=== PATIENT | female | born 1935 ===

== ENCOUNTER 2016-11-23 07:15 | Day surgery (SDC) | payer MEDICARE ==
[2016-11-23 07:57] VITALS: BMI 18.7
[2016-11-23 08:05] VITALS: TEMP 97.8
[2016-11-23] MEDS ORDERED: Propofol 10 mg/ml Inj (20 ML) ONE (08:11)
[2016-11-23] MEDS ORDERED: Lidocaine Hydrochloride 5 ML INJ ONE (08:12)
[2016-11-23] MEDS ORDERED: Lactated Ringer's 1,000 ML IV ONE (08:30)
--- NOTE | 2016-11-23 08:32 | CP.SDSHP ---
Same Day Surgery H & P - History Proposed Procedure: EGD and Colonoscopy Pre-Op Diagnosis: Kay's esophagus and personal history of colonic polyps - Previous Medical/Surgical History Misc: Other Comments: Hyperlipidemia, GERD Previous Surgical History: Appendectomy, oophorectomy, R inguinal hernia repair - Allergies Allergies: Allergies No Known Allergies Allergy (Verified 09/29/13 12:47) - Current Medications Current Medications: See reconciliation shet - Physical Exam General Appearance: WD WN female in NAD Vital Signs: Vital Signs 11/23/16 07:58 Temperature 97.8 F Pulse Rate 80 Respiratory 20 Rate Blood Pressure 140/61 O2 Sat by Pulse 100 Oximetry Mental Status: Alert & Oriented x3 Neuro: WNL Heart: WNL Lungs: WNL GI: WNL - Impression Impression: Kay's esophagus and personal history of colonic polyps Pt. Evaluated Today:Candidate for Anesthesia & Procedure: Yes - Date & Time Date: 11/23/16 Time: 08:32 Short Stay Discharge - Short Stay Discharge Admitting Diagnosis/Reason for Visit: PERSONAL HISTORY OF COLONIC POLYPS,KAY 'S ESOPH Disposition: HOME/ ROUTINE
[2016-11-23] MEDS ORDERED: Atropine 0.4 mg/ml Inj (1 mL) ONE (09:32)
[2016-11-23 10:04] VITALS: RESP 12
[2016-11-23 11:49] VITALS: BP 103/61; PULSE 65; O2SAT 99
== END 2016-11-23 11:20 | disposition home or self-care (01) ==
LOC: C.ENDO 07:15
PROVIDERS: ATTEND Internal Medicine Gastroenterology
DX: Z86.010 Personal history of colon polyps (principal); K57.30 Diverticulosis of large intestine without perforation or abscess without bleeding; K63.5 Polyp of colon
CPT/HCPCS: 45380; 88305; 88312; 88313; 88342; J0461; J2704; J7120

== ENCOUNTER 2018-03-24 12:45 | Outpatient (CLI) | payer MEDICARE | END 2018-03-24 12:46 | disposition home or self-care (01) | LOC: C.CTH 12:45 | DX: R10.84 Generalized abdominal pain (principal) ==

== ENCOUNTER 2018-03-24 12:56 | Outpatient (CLI) | payer MEDICARE | END 2018-03-24 12:57 | disposition home or self-care (01) | LOC: C.RADH 12:56 | DX: F17.200 Nicotine dependence, unspecified, uncomplicated (principal); J44.9 Chronic obstructive pulmonary disease, unspecified ==

== ENCOUNTER 2018-06-13 09:08 | Inpatient (IN) | payer MEDICARE, OTHER ==
[2018-02-18 14:15] VITALS: BMI 17.9
[2018-06-13] MEDS ORDERED: Bupivacaine 0.25% 20 ML INJ IJ ONE (11:10)
[2018-06-13] MEDS ORDERED: Lidocaine Hydrochloride 10 ML INJ ONE (11:10)
[2018-06-13] MEDS ORDERED: ceFAZolin 1 gm in NS 1 GM/100 ML BAG IVPB ONE (11:10)
[2018-06-13] MEDS ORDERED: Propofol 10 mg/ml Inj (20 ML) ONE (11:20)
[2018-06-13] MEDS ORDERED: Lidocaine Hydrochloride 5 ML INJ ONE (11:24)
[2018-06-13] MEDS ORDERED: Lactated Ringer's 1,000 ML IV SCH (12:15)
[2018-06-13 17:16] VITALS: RESP 20
[2018-06-13] MEDS: Acetaminophen-Codeine 300/30 mg Tab PO PRN (17:52)
[2018-06-13] MEDS: Enoxaparin 30 mg Syringe SC SCH (21:52)
--- NOTE | 2018-06-13 22:30 | OP ---
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 PROCEDURES PERFORMED: Wide deep excision 5 cm hemangioma of the right knee and right leg with excision of varicose veins and excision of underlying soft tissue mass. SURGEON: Bairon Gary MD ANESTHESIA: General. ESTIMATED BLOOD LOSS: 30 mL. POSTOPERATIVE CONDITION: Stable. INDICATION FOR SURGERY: This is an 82-year-old female with 2 painful areas of phlebitis in the leg, which had been persistent and now will undergo excision. DESCRIPTION OF PROCEDURE: The patient was taken to the operating room. IV sedation was administered. The right lower extremity was prepped and draped and local anesthesia was infiltrated. A generous elliptical incision was made in the right leg surrounding the mass. It was dissected into the fascia and removed. Bleeding was controlled using the Bovie. Larger blood vessels were repaired. The wound was irrigated with saline. Generous advancement flaps were raised. Counterincisions were made and advancement flap closure was performed with heavy Monocryl and skin clips. The above was repeated in the right knee. The patient tolerated the procedure well and returned to the recovery room in stable condition. Bairon Gary MD
[2018-06-13] MEDS: ceFAZolin 1 gm FROZEN Premix 1 GM/50 ML ML IVPB SCH (22:46)
[2018-06-14] MEDS: ceFAZolin 1 gm FROZEN Premix 1 GM/50 ML ML IVPB SCH (06:32)
[2018-06-14 07:26] LABS: BASO # 0.1 K/uL (0.0-0.2); BASO % 1.3 % (0.0-2.0); EOS # 0.2 K/uL (0.0-0.7); EOS % 4.5 % (0.0-4.0); HEMOGLOBIN 11.6 g/dL (11.0-16.0); LYMPH # 1.6 K/uL (1.0-4.3); LYMPH % 29.4 % (20.0-40.0); MEAN CELL VOLUME 93.8 fL (81.0-99.0); MEAN CORPUSCULAR HEMOGLOBIN 31.5 pg (27.0-31.0); MEAN CORPUSCULAR HGB CONC 33.6 g/dL (33.0-37.0); MEAN PLATELET VOLUME 8.8 fL (7.2-11.7); MONO # 0.4 K/uL (0.0-0.8); NEUT # 3.1 K/uL (1.8-7.0); NEUT % 57.8 % (50.0-75.0); NRBC % 0.1 % (0.0-2.0); RBC 3.67 Mil/uL (3.80-5.20); RED CELL DISTRIBUTION WIDTH 13.8 % (11.5-14.5); WHITE BLOOD COUNT 5.4 K/uL (4.8-10.8)
[2018-06-14 07:30] LABS: BLOOD UREA NITROGEN 22 mg/dL (7-17); CALCIUM 8.8 mg/dl (8.6-10.4); GFR NON-AFRICAN AMERICAN > 60
[2018-06-14 07:39] VITALS: BP 117/69; PULSE 69; TEMP 97.9; O2SAT 98
--- NOTE | 2018-06-14 07:53 | CP.PCM.CON ---
History of Present Illness - History of Present Illness History of Present Illness: 82-year-old female with 2 painful areas of phlebitis in the leg which has been persistent and patient brought to the emergency room for excision Patient went to the OR yesterday and status post surgery of free medical veins and hemangioma of the right knee in the right lower extremity Past Patient History - Past Medical History & Family History Past Medical History?: Yes - Past Social History Smoking Status: Former Smoker - CARDIAC Hx Cardiac Disorders: Yes Hx Hypercholesterolemia: Yes Hx Peripheral Vascular Disease: Yes (VARICOSE VEINS BILAT.) - PULMONARY Hx Respiratory Disorders: No - NEUROLOGICAL Hx Neurological Disorder: No - HEENT Hx HEENT Problems: Yes - RENAL Hx Chronic Kidney Disease: No - ENDOCRINE/METABOLIC Hx Endocrine Disorders: No - HEMATOLOGICAL/ONCOLOGICAL Hx Blood Disorders: No - INTEGUMENTARY Hx Dermatological Problems: Yes (crusting on scalp) - MUSCULOSKELETAL/RHEUMATOLOGICAL Hx Musculoskeletal Disorders: Yes Hx Arthritis: Yes Hx Back Pain: Yes Hx Falls: No Hx Osteoarthritis: Yes Hx Spinal Stenosis: Yes - GASTROINTESTINAL Hx Gastrointestinal Disorders: Yes Hx Gastritis: Yes Hx Gastroesophageal Reflux: Yes Hx Ulcer: Yes Other/Comment: HX: KAY'S ESOPHAGUS. HX: HIATAL HERNIA - GENITOURINARY/GYNECOLOGICAL Hx Genitourinary Disorders: Yes Other/Comment: OVARIAN CYST - PSYCHIATRIC Hx Psychophysiologic Disorder: Yes Hx Depression: Yes Hx Substance Use: No - SURGICAL HISTORY Hx Surgeries: Yes Hx Appendectomy: Yes (1951) Hx Herniorrhaphy: Yes (INGUINAL HERNIA) Other/Comment: ovarian cysts removed. oophorectomy 2003. CARDIAC CATH- CLEAR - ANESTHESIA Hx Anesthesia: Yes Hx Anesthesia Reactions: No Hx Malignant Hyperthermia: No Meds Allergies/Adverse Reactions: Allergies Allergy/AdvReac Type Severity Reaction Status Date / Time No Known Allergies Allergy Verified 02/18/18 14:15 - Medications Medications: Current Medications Acetaminophen/Codeine Phosphate (Tylenol/Codeine 300 Mg/30 Mg) 1 ea PO Q4H PRN PRN Reason: pain Last Admin: 06/13/18 17:52 Dose: 1 ea Docusate Sodium (Colace) 100 mg PO BID [facility] Last Admin: 06/13/18 17:35 Dose: 100 mg Enoxaparin Sodium (Lovenox) 30 mg SC 1000,2200 [facility] Last Admin: 06/13/18 21:52 Dose: 30 mg Cefazolin Sodium (Ancef) 1 gm in 50 mls @ 100 mls/hr IVPB Q8H [facility]; Protocol Last Admin: 06/14/18 06:32 Dose: 100 mls/hr Ondansetron HCl (Zofran Inj) 4 mg IVP Q6 PRN PRN Reason: Nausea/Vomiting Pantoprazole Sodium (Protonix Inj) 40 mg IVP DAILY [facility] Results - Vital Signs Recent Vital Signs: Last Vital Signs Temp 97.9 F 06/14/18 07:35 Pulse 69 06/14/18 07:35 Resp 20 06/14/18 07:35 BP 117/69 06/14/18 07:35 Pulse Ox 98 06/14/18 07:35 - Labs Result Diagrams: 06/14/18 07:04 06/14/18 07:04 Labs: Laboratory Results - last 24 hr 06/14/18 06/14/18 07:04 07:04 WBC 5.4 RBC 3.67 L Hgb 11.6 Hct 34.5 MCV 93.8 MCH 31.5 H MCHC 33.6 RDW 13.8 Plt Count 263 MPV 8.8 Neut % (Auto) 57.8 Lymph % (Auto) 29.4 [place] % (Auto) 7.0 Eos % (Auto) 4.5 H Baso % (Auto) 1.3 Neut # (Auto) 3.1 Lymph # (Auto) 1.6 [place] # (Auto) 0.4 Eos # (Auto) 0.2 Baso # (Auto) 0.1 Sodium 137 Potassium 4.0 Chloride 106 Carbon Dioxide 27 Anion Gap 8 L BUN 22 H Creatinine 0.7 Est GFR ( Amer) > 60 Est GFR (Non-Af Amer) > 60 Random Glucose 90 Calcium 8.8 Assessment & Plan (1) Hemangioma Status: Acute Comment: hemangioma ofright lower extremity and right knee - Assessment and Plan (Free Text) Plan: WBC 5.4 Hemoglobin 11.4 Hematocrit 34.5 Sodium 137 BUN 2822 otherwise labs unremarked
[2018-06-14] MEDS: Enoxaparin 30 mg Syringe SC SCH (09:47)
[2018-06-14] MEDS ORDERED: Pneumococcal 23-Valent Vaccine IM ONE (10:00)
[2018-06-14] MEDS: Acetaminophen-Codeine 300/30 mg Tab PO PRN (10:03)
== END 2018-06-14 12:20 | disposition home or self-care (01) | DRG 263 ==
LOC: C.SDS 09:08 → C.9S 11:50 → C.3T 16:47
PROVIDERS: ADMIT Surgery; ATTEND Surgery
PROC: 0JXN0ZZ Transfer Right Lower Leg Subcutaneous Tissue and Fascia, Open Approach (ICD-10-PCS; 2018-06-13)
PROC: 0JBN0ZZ Excision of Right Lower Leg Subcutaneous Tissue and Fascia, Open Approach (ICD-10-PCS; 2018-06-13)
PROC: 06BP0ZZ Excision of Right Saphenous Vein, Open Approach (ICD-10-PCS; principal; 2018-06-13 10:00)
DX: I83.11 Varicose veins of right lower extremity with inflammation (principal); I80.3 Phlebitis and thrombophlebitis of lower extremities, unspecified; D18.09 Hemangioma of other sites; I73.9 Peripheral vascular disease, unspecified; E78.00 Pure hypercholesterolemia, unspecified; K21.9 Gastro-esophageal reflux disease without esophagitis; Z87.891 Personal history of nicotine dependence; Z90.49 Acquired absence of other specified parts of digestive tract; Z87.19 Personal history of other diseases of the digestive system

== ENCOUNTER 2018-07-09 19:14 | Emergency (ER) | payer MEDICARE, OTHER ==
[2018-07-09 19:14] VITALS: BMI 17.9
[2018-07-09 19:28] VITALS: TEMP 98.7
--- NOTE | 2018-07-09 20:23 | C.PDOC ---
History Of Present Illness 83 year old female with PMHx of vertigo presents to the ED c/o left arm pain, primarily at the left elbow. Patient reports falling down one star at home and landing onto her left arm. Patient think her fall was due to her vertigo, and she states takes Melcizine for it PRN. Patient denies fever, chills, head injury, LOC, CP, palpitations, SOB, extremity weakness, sensory changes. Time Seen by Provider: 07/09/18 19:16 Chief Complaint (Nursing): Upper Extremity Problem/Injury History Per: Patient History/Exam Limitations: no limitations Onset/Duration Of Symptoms: Hrs Current Symptoms Are (Timing): Still Present Quality: "Pain" Severity: Moderate Exacerbating Factor(s): Movement Recent travel outside of the [place]: No Additional History Per: Patient Past Medical History Reviewed: Historical Data, Nursing Documentation, Vital Signs Vital Signs: Last Vital Signs Temp 98.7 F 07/09/18 19:21 Pulse 63 07/09/18 19:21 Resp 16 07/09/18 19:21 BP 167/78 H 07/09/18 19:21 Pulse Ox 99 07/09/18 19:21 - Medical History PMH: Arthritis, Colonic Polyps, Depression (NO MEDS.), Gastritis, Hypercho lesterolemia Surgical History: Appendectomy (1951), Endoscopy - [facility] Procedures EXCISION OF R LOW LEG SUBCU/FASCIA, OPEN APPROACH (06/13/18) EXCISION OF RIGHT GREATER SAPHENOUS VEIN, OPEN APPROACH (06/13/18) OTH & OPEN REPAIR DIRECT INGUINAL HERNIA W GRAFT OR PROSTH (10/02/13) TRANSFER R LOW LEG SUBCU/FASCIA, OPEN APPROACH (06/13/18) Family History: States: No Known Family Hx - Social History Hx Alcohol Use: No Hx Substance Use: No Review Of Systems Constitutional: Negative for: Fever, Chills Eyes: Negative for: Vision Change Cardiovascular: Negative for: Chest Pain, Palpitations Respiratory: Negative for: Shortness of Breath Gastrointestinal: Negative for: Nausea, Vomiting, Abdominal Pain Musculoskeletal: Positive for: Arm Pain Skin: Negative for: Rash Neurological: Negative for: Weakness, Numbness, Headache, Dizziness Physical Exam - Physical Exam Appears: Well, Non-toxic, In Acute Distress (in moderate pain) Skin: Normal Color, Warm, Dry, No Rash Head: Atraumatic, Normacephalic Eye(s): bilateral: Normal Inspection, PERRL, EOMI Oral Mucosa: Moist Neck: Normal ROM, No Midline Cervical Tenderness, No Paracervical Tenderness, No Step Off Deformity, Supple Cardiovascular: Rhythm Regular Respiratory: Normal Breath Sounds, No Rales, No Rhonchi, No Wheezing Extremity: No Normal ROM (Limited lef elbow due to pain), Tenderness (moderate tenderness to palpation at left arm and forearm, severe tenderness to palpation of left elbow), Capillary Refill (< 2 sec all digits ), No Deformity, Swelling (left elbow moderate swelling ) Pulses: Left Radial: Normal, Right Radial: Normal Neurological/Psych: Oriented x3, Normal Motor, Normal Sensation Gait: Steady ED Course And Treatment O2 Sat by Pulse Oximetry: 99 (ON RA) Pulse Ox Interpretation: Normal - Other Rad Left shoulder X-Ray X-Ray: Interpreted by Me, Viewed By Me (no fx/dislocation) Left elbow X-ray X-Ray: Interpreted by Me, Viewed By Me (radial head fx ) Left wrist X-ray X-Ray: Interpreted by Me, Viewed By Me (no fx/dislocation) Progress Note: Xrays of left shoulder, left elbow and left wrist ordered and reviewed. Patient given PO Motrin and Tylenol. Reevaluation Time: 20:45 Reassessment Condition: Improved (Patient reassessed, is resting comfortably and pain has improved. She has been placed in double sugar tong splint and arm sling by commercial hvac technician and checked by me, (+) NV intact. Patient given Rxs for pain medication, and instructed to follow up with orthopedics within 1 week. She understands she should return to ED if symptoms worsen.) Disposition Counseled Patient/Family Regarding: Studies Performed, Diagnosis, Need For Followup, Rx Given - Disposition Referrals: Kieran Hooks III, MD [Staff Provider] - Mary Ann Gomez MD [Staff Provider] - Disposition: HOME/ ROUTINE Disposition Time: 20:45 Condition: STABLE Additional Instructions: FOLLOW UP WITH [facility] [facility]GER WITHIN 1 WEEK ALTERNATE IBUPROFEN AND TYLENOL EVERY 4 HOURS RETURN TO EMERGENCY ROOM IF YOUR SYMPTOMS WORSEN SEGUIRSE CON EL ESPECIALISTA ORTOPDICO EN MADI SEMANA IBUPROFEN ALTERNO Y TYLENOL CADA 4 HORAS VUELVA A LA SREEKANTH DE EMERGENCIA SI REA SNTOMAS SE HACEN PEOR Prescriptions: Acetaminophen [Tylenol 325mg tab] 650 mg PO Q6 PRN #30 tab PRN Reason: pain/fever Ibuprofen [Motrin Tab] 600 mg PO Q6 PRN #30 tab PRN Reason: fever/pain Instructions: Radius Fracture (DC) Forms: [employer] (Macedonian) Print Language: SOUTH KOREAN - POA Present On Arrival: Falls Or Trauma - Clinical Impression Clinical Impression: Radial head fracture, closed - Scribe Statement The provider has reviewed the documentation as recorded by the Scribe Moncho Chew All medical record entries made by the Scribe were at my direction and personally dictated by me. I have reviewed the chart and agree that the record accurately reflects my personal performance of the history, physical exam, medical decision making, and the department course for this patient. I have also personally directed, reviewed, and agree with the discharge instructions and disposition.
[2018-07-09 21:24] VITALS: BP 150/90; PULSE 90; RESP 14
--- NOTE | 2018-07-10 17:35 | RAD ---
Date of service: 07/09/2018 PROCEDURE: Left Wrist Radiographs. HISTORY: left arm pain after fall COMPARISON: None. TECHNIQUE: 4 views obtained. FINDINGS: BONES: Normal. No fracture. JOINTS: Osteoarthritis at CMC 1. The remaining joint spaces and articular surfaces are preserved. SOFT TISSUES: Normal. OTHER FINDINGS: None. IMPRESSION: No acute fracture. Osteoarthritis at CMC 1 articulation.
--- NOTE | 2018-07-10 17:35 | RAD ---
Date of service: 07/09/2018 PROCEDURE: Radiographs of the Left Shoulder HISTORY: left shoulder pain after fall COMPARISON: No prior. TECHNIQUE: Two views obtained. FINDINGS: BONES: Normal. No fracture. JOINTS: Mild glenohumeral osteoarthritis. The acromioclavicular joint is preserved. SOFT TISSUES: Normal. OTHER FINDINGS: None. IMPRESSION: Mild acromioclavicular degenerative arthritis. No evidence of acute fracture.
--- NOTE | 2018-07-10 17:37 | RAD ---
Date of service: 07/09/2018 PROCEDURE: Radiographs of the left elbow. HISTORY: left elbow pain after fall COMPARISON: No prior. TECHNIQUE: 3 views obtained. FINDINGS: BONES: Technically limited examination. Angulated fracture of the radial head, questionably intra-articular. There is suspected displaced fracture of the lateral humeral condyle. Consider further evaluation with computed tomography. No dislocation. JOINTS: Normal. No osteoarthritis. SOFT TISSUES: Normal. JOINT EFFUSION: None. OTHER FINDINGS: None IMPRESSION: Angulated radial head fracture. Possible displaced fracture of the lateral humeral condyle.
[2018-07-12 14:59] VITALS: O2SAT 99
== END 2018-07-09 21:24 | disposition home or self-care (01) ==
LOC: C.ER 19:14 → EDBD 19:14 → C.ER 21:24
DX: S52.122A Displaced fracture of head of left radius, initial encounter for closed fracture (principal); W10.9XXA Fall (on) (from) unspecified stairs and steps, initial encounter; Y92.009 Unspecified place in unspecified non-institutional (private) residence as the place of occurrence of the external cause; E78.00 Pure hypercholesterolemia, unspecified